=== PATIENT | male | born 2000 | race African-American/Black ===

== ENCOUNTER 2018-02-11 12:44 | Emergency (ER) | payer SELFPAY ==
[~2018-02-11] VITALS: Ht 177.8 cm; Wt 68.0 kg
[2018-02-11 13:15] VITALS: BP 103/82
== END 2018-02-11 18:07 | disposition left against medical advice (07) ==
LOC: ER 14:23
DX: N48.89 Other specified disorders of penis (principal)
CPT/HCPCS: 99281